=== PATIENT | female | born 1935 | race Caucasian/White ===

== ENCOUNTER 2016-12-14 09:30 | Outpatient (CLI) ==
[2015-05-27 18:17] VITALS: BMI 38.6
--- NOTE | 2016-12-24 08:49 | MAMMO ---
EXAM: Bilateral digital screening mammogram History: Screening Comparison: Bilateral mammogram 08/21/2012 Findings: MLO and CC views of bilateral breasts demonstrate fatty replaced breast parenchyma. Stab le benign bilateral vascular calcifications. There are no dominant masses, no suspicious microcalci fications and no architectural distortions Impression: Benign stable mammogram. Recommend followup routine screening mammography in 1 year. BIRADS 2
== END 2016-12-14 09:31 | disposition home or self-care (01) ==
LOC: RAD 09:30
PROVIDERS: ATTEND Family Medicine
DX: Z12.31 Encounter for screening mammogram for malignant neoplasm of breast (principal)

== ENCOUNTER 2019-01-06 09:31 | Outpatient (CLI) ==
[2015-05-27 18:17] VITALS: BMI 38.6
--- NOTE | 2019-01-06 10:58 | DEXA ---
EXAM: Bone densitometry. History: Osteopenia, menopause Findings: Evaluation of the lumbar spine reveals a total bone mineral density of 1.157 grams per centimeter squ ared with T-score of negative 0.2. Evaluation of the left hip reveals a total bone mineral density of 0.968 grams per centimeter squared with T-score of negative 0.3. Evaluation of the right hip reveals a total bone mineral density of 0.840 grams per centimeter square d with T-score of negative 1.3. FRAX: 10-year probability for major osteoporotic fracture is 13.3% and 3.7% for hip fracture. Impression: 1. Normal bone mineral density of the lumbar spine. 2. Normal bone mineral density of the left hip. 3. Osteopenia of the right hip
--- NOTE | 2019-01-07 10:52 | MAMMO ---
EXAM: Bilateral digital screening mammogram (2-D and 3-D) History: Screening Comparison: Bilateral mammogram 12/14/2016 Findings: MLO and CC views of bilateral breasts demonstrate predominately fatty replaced breast pare nchyma. CAD was reviewed by the radiologist. Tomosynthesis was performed. There are no dominant ma sses, no suspicious microcalcifications and no architectural distortions. Stable benign bilateral va scular calcifications. Impression: Benign stable mammogram. Recommend followup routine screening mammography in 1 year. BIRADS 2, benign
== END 2019-01-06 09:32 | disposition home or self-care (01) ==
LOC: RAD 09:31
PROVIDERS: ATTEND Family Medicine
DX: Z12.31 Encounter for screening mammogram for malignant neoplasm of breast (principal); Z78.0 Asymptomatic menopausal state; M85.80 Other specified disorders of bone density and structure, unspecified site; E11.9 Type 2 diabetes mellitus without complications; N18.3 Chronic kidney disease, stage 3 (moderate)